=== PATIENT | female | born 1960 | race African-American/Black ===

== ENCOUNTER → 2016-10-10 | Outpatient (CLI) | payer MEDICARE, OTHER ==
[~2016-10-10] MED LIST: FENO160 PO; HYDR-3971 PO; INSU100C6 SQ; LISI-622 PO; METF10002 PO; OMEG-12 PO; VITAMIN D PO
== END | disposition home or self-care (01) ==
LOC: RADPV 12:03
PROVIDERS: ATTEND Specialist
DX: M17.11 Unilateral primary osteoarthritis, right knee (principal)

== ENCOUNTER → 2016-11-03 | Outpatient (CLI) | payer MEDICARE, OTHER | END | disposition home or self-care (01) | LOC: RADPV 14:41 | PROVIDERS: ATTEND Specialist | DX: M11.262 Other chondrocalcinosis, left knee (principal) ==

== ENCOUNTER → 2016-12-27 | Outpatient (CLI) | payer MEDICARE, OTHER | END | disposition home or self-care (01) | LOC: RADPV 10:25 | PROVIDERS: ATTEND Orthopaedic Surgery | DX: M17.12 Unilateral primary osteoarthritis, left knee (principal); M11.262 Other chondrocalcinosis, left knee; M77.32 Calcaneal spur, left foot; Z98.890 Other specified postprocedural states ==

== ENCOUNTER → 2017-09-14 | Outpatient (CLI) | payer MEDICARE, OTHER | END | disposition home or self-care (01) | LOC: RADPV 11:34 | PROVIDERS: ATTEND Legal Medicine | DX: I70.0 Atherosclerosis of aorta (principal); I10 Essential (primary) hypertension | CPT/HCPCS: 71046 ==